=== PATIENT | female | born 1995 | race Caucasian/White ===

== ENCOUNTER 2021-08-18 16:13 | Emergency (ER) | payer OTHER, MEDICAID ==
[~2021-08-18] VITALS: Ht 165.1 cm; Wt 86.2 kg
[2021-08-18 16:21] VITALS: BP 156/65
[2021-08-18] MEDS ORDERED: FLEXERIL PO (17:42)
== END 2021-08-18 17:47 | disposition home or self-care (01) ==
LOC: M.ERS 16:13
DX: M25.522 Pain in left elbow (principal); Z90.711 Acquired absence of uterus with remaining cervical stump; X50.1XXA Overexertion from prolonged static or awkward postures, initial encounter; Y93.89 Activity, other specified; Y92.89 Other specified places as the place of occurrence of the external cause; Y99.8 Other external cause status